=== PATIENT | male | born 1955 | race Caucasian/White ===

== ENCOUNTER 2017-02-28 01:48 | Inpatient (IN) | payer OTHER ==
[2017-02-28] VITALS (10 sets, daily range): BP systolic 98–144; BP diastolic 51–113
[~2017-02-28] VITALS: Ht 175.3 cm; Wt 58.8 kg
--- NOTE | ~2017-02-28 | WRIGHTHP ---
[place], [place] PATIENT HISTORY AND PHYSICAL EXAM NAME: DEON GRAHAM [facility] #: [id number] UNIT #: [id number] ROOM: [facility] DOCTOR: SNEHAL MOONEY MD BIRTHDATE: [birth year] DOS: 02/28/2017 HISTORY OF PRESENT ILLNESS: This patient is 61-year-old, not known to me, patient of Dr. Solorio, comes in with complaints of cough and difficulty breathing. The patient says last week he suddenly got sick with increasing shortness of breath and cough productive of scant amounts of sputum. It started to become quite copious, so finally decided to come into the emergency room. He denies having any chest pains or palpitations, does not have any fever or chills, does not have any abdominal pain, nausea, and emesis. Appetite is poor and he has lost quite a lot of weight in the last couple of months, almost close to 30 pounds. PAST MEDICAL HISTORY: Significant for: 1. COPD for which he is not currently on any medications. 2. Epigastric hernia ____ ventral hernia, status post repair in 2016. SOCIAL HISTORY: Smoker of about half to 1 pack of cigarettes a day. Denies using any alcohol. He is currently employed. He is for the last 30 years. He lives alone. He has 2 grown children who are both in their 30s. FAMILY HISTORY: Significant for parents who from cardiac disease and one brother who is killed in a motorcycle accident and a sister who also from coronary artery disease. He has 1 living sister who is 3 years younger than him who is healthy. PHYSICAL EXAMINATION: VITAL SIGNS: Graphic trend shows a pressure 144/77, pulse of 85, respirations 32, temperature 97.7. Audible gurgling heard. NECK: Supple, no thyromegaly, no lymphadenopathy. LUNGS: Diminished breath sounds, scattered rales heard bilaterally. HEART: Regular. ABDOMEN: Soft, scaphoid. EXTREMITIES: Without any edema. Chest x-ray showed consolidation of right upper lobe, right hilum and right inferior lobe. LABORATORY DATA: BMP: Glucose 93, BUN 98, creatinine 2.92, GFR 22, sodium 133, potassium 3.5, chloride 94. WBC count is 4.6, hemoglobin 15.8, hematocrit 43.8, platelets 126. CT of the chest done in the emergency room shows large right upper lobe consolidation with precarinal lymph node. Lactic acid was elevated at 2.8. ASSESSMENT AND PLAN: 1. The patient who presents with cough, shortness of breath, elevated lactic acid, most likely septic from underlying pneumonia, multilobar, most likely Gram-negative, but since the sputum is quite purulent, the patient is placed on multiple antibiotics including Zosyn, Levaquin and vancomycin. Dr. Baez has been consulted. Sputum will be sent for culture. Breathing treatments have been ordered. [place], [place] PATIENT HISTORY AND PHYSICAL EXAM NAME: DEON GRAHAM UNIT #: [id number] ROOM: [facility] DOCTOR: SNEHAL MOONEY MD BIRTHDATE: [birth year] 2. Chronic obstructive pulmonary disease, low dose IV steroids have been ordered along with breathing treatments. 3. Thrombocytopenia. We will hold off on his aspirin. 4. Stage 4 kidney disease. This is a relatively new finding for the patient. The patient states that he has no recollection of any abnormal kidney functions. He has seen Dr. Solorio in the past, so we will continue IV fluids. We will rule out other pathology, which could cause both lung and kidney disease ____ serological studies are going to be ordered. Renal ultrasound and renal perfusion scan also will be ordered. IV fluids to be continued and repeat labs to be ordered in the morning. SNEHAL MOONEY MD CM:HISPHYS:PATIENT HISTORY AND PHYSICAL EXAMINATION [id number] SNEHAL MOONEY MD 02/28/17 1336 interface
--- NOTE | ~2017-02-28 | PROC NOTE ---
[place], [place] PROCEDURE NOTE [facility]: [id number] UN[facility] #: [id number] ROOM: [facility] DOCTOR: DUGLAS TRIPP MD,MICHELLE BIRTHDATE: [birth year] DOS: 02/28/2017 PROCEDURE: Fiberoptic bronchoscopy patient BAL specimen of the right upper lobe. PREOPERATIVE DIAGNOSES: The patient has a large area of consolidation and infiltration with necrotizing pneumonia suspected in the right upper lung. POSTOPERATIVE DIAGNOSES: The patient has a large area of consolidation and infiltration with necrotizing pneumonia suspected in the right upper lung. There were no endobronchial obstructive lesions. PROCEDURE DESCRIPTION: Informed consent obtained from the patient's family members. The patient was taken to the negative pressure room in the Intensive Care Unit for bedside bronchoscopy. After that, the sedation was continued for the patient with Diprivan and Versed combination. The fiberoptic bronchoscope advanced to the endotracheal tube ____ trachea. Moderate amount of thick secretions were present with purulent secretion in the tracheal lumen as well as in the level of freya, all secretions suctioned out. Small secretion present in the left endobronchial tree as well, which was cleared out. Left upper, lingular lobe bronchi were all noted patent. Right main stem bronchus noted inflammatory changes with redness and the changes was also noted with inflammatory changes with mucosal edema of the right upper lobe and the right lower lobe. There were no endobronchial obstructive lesions. The bronchial washing was collected in the right upper, right middle and right lower lobe. After that BAL specimen was obtained from the patient right upper lobe. The patient to subsegments without any difficulty. The bronchial washing of the patient BAL specimen sent for adequate testing. The BAL specimen will be sent for the cell count differential of the right upper lobe as well. Additional culture for Gram stain, cytology and other appropriate needed testing. Procedure well tolerated. Postoperative findings will be discussed with the patient's family members later on once available. No family member has been available at this time to discuss the current findings. No change in treatment at this time will be necessary. MICHELLE ARDON MD CM:PROCNOTE:PROCEDURE NOTE [id number] MICHELLE TRIPP MD
--- NOTE | ~2017-02-28 | CON ---
[place], [place] REPORT OF CONSULTATION NAME: DEON GRAHAM UNIT #: [id number] ROOM: [facility] DOCTOR: DUGLAS TRIPP MD,MICHELLE BIRTHDATE: [birth year] DOS: 02/28/2017 Consultation was done for this patient for the assessment of current acute pneumonia to large consolidation in the lungs as well as acute respiratory failure, currently use of mechanical ventilation. History could not be obtained from the patient. All the history is contained is document is actual review the physician as well my discussion with Dr. Keyanna Parish personally on the telephone and the discussion with the nursing staff. HISTORY OF PRESENT ILLNESS: This is a 61-year-old white male who has been admitted to the hospital under care of Dr. Keyanna Parish on 02/28/2017. The patient was brought to the hospital by the ambulance. He has been reported symptoms of intermittent shortness of breath ongoing for the past 4 days. The symptoms have been noted progressive worsening. The patient has been noted with coughing. The cough it was described as dark green in color as well as brownish in color at times. The patient has been assessed. The chest x-ray of the patient noted with evidence of large area of consolidation mass-like lesion in the right upper lobe. The patient has required progressive increased oxygen supplementation gradually as he was admitted in the Intensive Care Unit. The patient's respiratory status deteriorated earlier about an hour prior to my assessment, requiring intubation and mechanical ventilation. The patient has been currently noted on the mechanical ventilator. He has also reported symptoms of pain, which is described in the left lower abdomen as well as in the back, in the right rib area as well. The symptoms were reported to ____ this morning. The patient brought to the hospital at 1:48 a.m. The patient is currently intubated, noted on mechanical ventilation with getting intravenous sedation with Diprivan, noted finding with the mechanical ventilation. The pulse oxygen saturation on assist control mode was noted only 91% at the present time on the mechanical ventilator. The patient has been noted copious amount of secretion which has been produced, suctioned out from the endotracheal tube as well as expected sputum described as thick purulent and brownish in color. There has not been having episodes or symptoms of hemoptysis reported. REVIEW OF SYSTEMS: Could not be completed since the patient currently intubated, noted on mechanical ventilation. PAST MEDICAL HISTORY: The patient has reported history of COPD without any medication use, history of epigastric ventral hernia status post surgical repair. PAST SURGICAL HISTORY: Noted ventral hernia repair in 2016. SOCIAL HISTORY: The patient was living at home, has been noted about a pack of cigarettes per day that was started for a long period of time with tobacco cessation reported on 02/23/2017. He is . The patient has 2 children. There was no history of alcohol use or any illicit drugs reported. FAMILY HISTORY: Both parents has been . HOME MEDICATIONS: None reported. [place], [place] REPORT OF CONSULTATION NAME: DEON GRAHAM UNIT #: [id number] ROOM: [facility] DOCTOR: ASIYA LANDEROS MDM BIRTHDATE: [birth year] PHYSICAL EXAMINATION: GENERAL: A 61-year-old male who has been currently intubated on mechanical ventilator, height of 5 feet 9 inches, weight 129 pounds, BMI 19.1 on admission. VITAL SIGNS: Normal temperature, respiratory rate of 18-32 and 36. Heart rate was noted as 83-81, blood pressure 116/51-144/71. Pulse oxygen saturation recorded as 91% at the best mechanical ventilator admission. The pulse ox saturation on 3-5 liters noted 96-99% saturation. HEAD, EARS, EYES, NOSE AND THROAT: Examination shows head was atraumatic. Loss of muscle mastication. Eyes, nonicterus. NECK: Supple. CARDIOVASCULAR: S1, S2 is audible. LUNGS: General reduction in the breath sounds with scattered wheezing. Breaths are noted decreased more on the right than the left side. ABDOMEN: Soft, flat, nontender, bowel sounds present. EXTREMITIES: Without any edema, clubbing, cyanosis. CENTRAL NERVOUS SYSTEM: Could not be assessed, but noted nonfocal, prior to intubation and mechanical ventilation earlier by the primary care physician. SKIN: No lesions or rashes. MUSCULOSKELETAL SYMPTOMS: No obvious deformities. LABORATORY DATA: CBC on admission this morning WBC count 4.6, hemoglobin and hematocrit normal, platelet count 126,000. BMP this morning was noted as BUN 98, creatinine 2.92 on admission, sodium 133, and chloride of 94. Lactic acid 2.8, follow up 1.8. several hours later. Troponin was noted normal on admission. Earlier on admission arterial blood gas 6 liter nasal cannula, pH of 7.36, pCO2 of 36, PO2 of 64.4. Gram stain of the sputum, which was earlier taken spontaneous sputum many white blood cells, moderate epithelial cells, many gram-positive cocci in pairs and chains. ESR was noted this morning is 65. The review of the radiology data, chest x-ray that was done on admission 2-view large area of consolidation with opacification noted in the right upper half of the lung. The right lower lung which appeared to be expanded, left lung was noted to be well inflated without any acute infiltration. CT scan of the chest that was done without contrast, unable to exactly determine the mediastinal structures including lymph nodes. However, the complete opacification of the right upper lung was noted with a MD to be a finding consistent with air necrotizing pneumonia for this patient as well as addition of consolidation noted superior segment of the right lower lobe. The precarinal lymph node was a large dimension of 18 x 11 mm in size. There were no pleural effusions. Chest x-ray that was done post-intubation noted. Endotracheal tube in appropriate position and the remaining finding of previous noted. CT scan and chest x-ray remains unchanged. IMPRESSION: 1. The patient who had been currently admitted to the hospital noted with severe acute pneumonia. The patient with severe acute sepsis with acute kidney injury as well acute injury will be noted, multifactorial with a possibility of a prerenal origin as related to current acute sepsis with lactic acidosis. 2. Rule out possible underlying malignant process as well with a large area of consolidation remains in consideration until the pneumonia completely resolved [place], [place] REPORT OF CONSULTATION NAME: DEON GRAHAM UNIT #: [id number] ROOM: [facility] DOCTOR[facility] [birth year] and all the abnormality remains clear. The necrotizing pneumonia suggested possibility of gram-positive infection including streptococcal pneumonia with viridans species as well as group B hemolytic strep and ____ negatives and anaerobes combination could be considered. Possibility of aspiration cannot be completely excluded. 3. The patient with severe hypoxia with V/Q mismatch because of significant involvement of the lungs, in the right upper lobe completely and the superior segment of the right lower lobe as well. 4. The patient with clinical diagnosis chronic obstructive pulmonary disease as well with acute exacerbation of chronic obstructive pulmonary disease, was noted to currently at the present time. 5. Strong suspicion of protein-calorie malnutrition as well. PLAN OF MANAGEMENT: The patient has been already ordered the bah cultures. Bronchoscopy done at the bedside to rule out any endobronchial lesion also to get the BAL specimen, right upper lobe as well. The patient is currently getting the Levaquin as well as IV Zosyn and vancomycin. Triple antibiotic for the ICU pneumonia coverage, which is appropriate. Urine for Legionella antigen and strep antigen was ordered. Monitor cultures of spontaneous sputum culture of the bronchial washing as well. Monitor hemodynamics. The patient did not require any vasopressor and noted mild hypertensive response. I have personally made the adjustment at the bedside mechanical ventilation with the changing the assist control mode of mechanical ventilation to pressure control mechanical ventilation pressure of 18 with a PEEP of 10 appeared to be the good PEEP resulting in improvement in the oxygenation from 91-97%. The deep venous thrombosis prophylaxis and ventilator bundle management has been ordered as well. Nutrition support will be started after confirmation of the NG tube. Routine labs will be monitored as well. Other supportive therapy, plan of management. Usual care. Additional treatment changes to be done based on progression of the illness. The assessment and management was discussed with Dr. Keyanna Parish in detail as well. Pulmonary critical evaluation and management of this patient, excluding any billable available procedure is 60 minutes. MICHELLE ARDON MD CM:CONSTR:REPORT OF CONSULTATION 1510 02/28/17 2001 interface
--- NOTE | ~2017-02-28 | PROC NOTE ---
[place], [place] PROCEDURE NOTE NAME: DEON GRAHAM UNIT #: [id number] ROOM: [facility] DOCTOR: CARLINE ADKINS DO BIRTHDATE: [birth year] DOS: 02/28/2017 PROCEDURE: Endotracheal intubation. PROCEDURE NOTE: This is a 61-year-old male currently admitted on Dr. Parish service in the ICU. The patient developed worsening shortness of breath and a rapid response was called, which I responded to. The patient needed intubation. Rapid sequence intubation was performed using succinylcholine and etomidate. The procedure was performed by resident, Dr. Mcdonald under my direct supervision. A size 8 endotracheal tube was inserted in the trachea with direct visualization of the vocal cords, good color change on the CO2 detector. There were no complications during the procedure. Chest x-ray was ordered for tube placement. CARLINE ADKINS DO CM:PROCNOTE:PROCEDURE NOTE [id number] CARLINE ADKINS DO
--- NOTE | ~2017-02-28 | PR ---
[place], [place] PROGRESS NOTE [id number] UNIT #: [id number] ROOM: [facility] DOCTOR: DUGLAS TRIPP MD,MICHELLE BIRTHDATE: [birth year] DOS: 03/01/2017 PULMONARY CRITICAL CARE EVALUATION AND MANAGEMENT SUBJECTIVE: The patient is seen and examined on 03/01/2017. He has been continued on the mechanical ventilator. The patient has not been noted any urinary output, but the lactic acid has been noted intermittently elevated. He has been given 1 liter of intravenous fluid yesterday followed by 100 mL of normal saline and other liter has been continued for the patient. Urine output for the patient was noted as minimal, only 50 mL urinary output was noted. The patient was noted with hypotension later on requiring use of the vasopressor therapy as intravenous Levophed was started this morning 10 mcg/kg/min. The mean arterial pressure for the patient at this time was noted as about 66-67. Several of the family members of this patient including one of his sister, ex-, her son and others were present in the room. The patient has been planned for transfer to the [facility]. He has been noted with intermittent secretion production from the endotracheal tube for the bronchoscopy was done yesterday. The blood culture has reported a gram-positive cocci in pairs and chains in both bottles taken on admission. The blood cultures for this patient was noted positive in the aerobic and anaerobic, both bottles. PHYSICAL EXAMINATION: VITAL SIGNS: Temperature 99.2 degree Fahrenheit recorded. The respiratory rate 16-18, heart rate of 96-100. The patient's blood pressure recorded as 80/50 to 127/65. Intake for the patient now 3100 mL and only 80 mL of urinary output in the last 24 hours, possibly on 3 liters. The pulse oxygen saturation of the patient noted as 94% on 50% oxygen supplementation. HEENT: The patient is orally intubated. Orogastric tube has been in place. Eyes nonicterus. NECK: Supple. CARDIOVASCULAR: S1, S2 is audible. LUNGS: There were no added sounds. Exam of the lung noted moderate decreased breath sounds, scattered expiratory wheezing. No crackles. ABDOMEN: Noted soft with bowel sounds present. EXTREMITIES: No edema, clubbing, or cyanosis. CENTRAL NERVOUS SYSTEM: The patient is currently sedated at the present time. SKIN: No lesions or rashes. MUSCULOSKELETAL: No deformities. LABORATORY DATA: The patient's lactic acid was elevated from 2.7-4.1. The arterial blood gas of the patient this morning on mechanical ventilation, pH of 6.99, pCO2 of 64, pO2 of 100 with 50% oxygen. CBC this morning, WBC count 20.3, hemoglobin 14.2, hematocrit 42.5, platelet count of 90,000. CMP of the patient this morning, glucose 109, BUN 122, creatinine 4.60. Potassium was normal. CO2 of 16. Calcium 7.9. Albumin 1.6, AST 972, ALT of 484. Prealbumin less than 3. The blood culture of the patient aerobic and anaerobic bottle both sets on 02/28/2017 in the Emergency Room shows gram-positive cocci in pairs and chains. Arterial blood gas repeated again for the patient with volume control, assist control mechanical ventilation, PEEP of 10.0, tidal volume 600 mL, pH of 6.99, [place], [place] PROGRESS NOTE NAME: DEON GRAHAM UNIT #: [id number] ROOM: [facility] DOCTOR: DUGLAS TRIPP MD,[facility] BIRTHDATE: [birth year] pCO2 of 65.8, pO2 of 152. The influenza A and B, nasal washing antigens were negative. Another arterial blood gas of the patient that was done later on shows pH of 6.97, pCO2 of 71.2, pO2 of 128. The urine culture, the patient noted no bacterial growth. Final culture results were pending. Gram stain of the bronchial washing of the patient moderate white blood cells, many gram-positive cocci in pairs and chains. The cell count differential for the patient BAL specimen of the right upper lobe was noted with 71% segmented neutrophils, 9%, lymphocytes 19%, monocytes, and 1% eosinophils. IMPRESSION: 1. The patient with acute pneumonia, which appeared to be necrotizing as well in the right upper lobe and the superior segment of the right lower lobe with acute severe hypercapnic and hypoxic respiratory failure and acute sepsis with septic shock, multiorgan system failure as well. 2. Progressive acute kidney injury secondary to that. 3. Liver dysfunction. The patient related to the current acute pneumonia and severe sepsis as well. 4. Change in mental status related to that. 5. Acute exacerbation of chronic obstructive pulmonary disease as well. 6. Lactic acidosis secondary to acute sepsis and hypoperfusion. PLAN OF MANAGEMENT: The ventilator changes has been made again by changing the patient to pressure control, volume control mechanical ventilation due to increased ____ ratio for this patient for adequate ventilation. The patient has been currently being prepared to be started on the bicarbonate drip. The patient has been monitored by the Nephrology services. The patient will be transferred to [facility] for further care. The patient will require CRRT with suppressive therapy to be maximized to maintain mean arterial pressure of 65 or greater. Further fluid will not be used since the patient has been noted no urinary output to prevent any fluid overload. Monitor culture results for this patient. Continue current triple antibiotic coverage. Possibility of suspected viridans species related to the strep pneumonia or group A hemolytic strep remains in consideration of Enterococcus possibility can be excluded as well with the current Gram stain. Monitor results of the Gram stain. The patient was also noted severe protein-calorie malnutrition and was started on feeding gradual maximization of the nutritional status. Oral mortality for this patient was noted very high. The assessment, management and further care has been discussed with the patient's family members including one of his sisters as well. He has severe protein calorie malnutrition status. Total time for the pulmonary critical evaluation and management today was 55 minutes. [place], [place] PROGRESS NOTE NAME: DEON GRAHAM UNIT #: [id number] ROOM: [facility] DOCTOR: MICHELLE LANDEROS MD BIRTHDATE: [birth year] MICHELLE ARDON MD CM:PNTRANS [phone] MICHELLE TRIPP MD 03/01/17 1736 interface
--- NOTE | ~2017-02-28 | PR ---
[place], [place] PROGRESS NOTE NAME: DEON GRAHAM UNIT #: [id number] ROOM: [facility] DOCTOR: SNEHAL MOONEY MD BIRTHDATE: [birth year] DOS: SUBJECTIVE: The patient is doing poorly, unresponsive and went into acute renal failure, anuric even after IV fluids and pressors. There is not much improvement in his overall condition and this morning, he is fairly unresponsive. OBJECTIVE: VITAL SIGNS: Blood pressure is 94/67, pulse of 99, respirations 14 and temperature 97.1. LUNGS: Diminished breath sounds. HEART: Regular. ABDOMEN: Soft, scaphoid. EXTREMITIES: Without any edema. LABORATORY DATA: White cell count is 20.3. Blood gas showed a pH of 7.6, pCO2 64, pO2 100 and bicarbonate 15.1. Comprehensive glucose 109, BUN 122, creatinine 4.60. LFTs were abnormal ____. Blood culture, gram-positive cocci in pairs and chains. ASSESSMENT AND PLAN: Sepsis, most likely from a staph infection with necrotizing pneumonia and sepsis related abnormal liver function tests and acute renal failure. The patient's overall prognosis remains poor and guarded. He is on maximal treatment plan here. Discussed with the patient's family members, who requested transfer. Transfer was arranged to [facility]. One call was called and they accepted the patient. SNEHAL MOONEY MD CM:PNTRANS [id number] SNEHAL MOONEY MD 03/01/17 0845 interface
[~2017-02-28 01:48] MED LIST: ASPIR LOW81 MG PO; HYDROCODONE BIT1 T11 PO
[2017-02-28 03:44] LABS: HEMATOCRIT 43.8 % (42.0-52.0); HEMOGLOBIN 15.8 g/dl (14.0-18.0); MEAN CORPUSCULAR HGB 33.9 pg (27.0-31.0); MEAN CORPUSCULAR HGB CONC 36.1 g/dl (33.0-37.0); MEAN PLATELET VOLUME 12.5 fl (9.6-12.3); PLATELET COUNT AUTOMATED 126 10*3/uL (130-400); RED BLOOD COUNT 4.66 10*6/uL (4.50-5.90); RED CELL DISTRI WIDTH 12.8 % (0-14.5); WHITE BLOOD COUNT 4.6 10*3/uL (4.8-10.8)
[2017-02-28 03:52] LABS: CREATININE 2.92 mg/dL (0.70-1.30); POTASSIUM 3.5 mmol/L (3.5-5.1)
[2017-02-28 04:14] LABS: BURR CELLS MANY; PLATELET SUFFICIENCY LOW (NORMAL); TOTAL CELLS COUNTED 100 #CELLS; TOXIC GRANULATION MARKED
[2017-02-28 05:15] LABS: ABG BASE EXCESS -3.8 mmol/L (-2.0-2.0); ABG HCO3 20.7 mmol/l (22-26); ABG O2 SATURATION 90.6 % (95-97); ARTERIAL BLOOD GAS PCO2 36.7 mmHg (35-45); ARTERIAL BLOOD GAS PH 7.366 (7.35-7.45); ARTERIAL BLOOD GAS PO2 64.4 mmHg (80-90)
[2017-02-28 12:01] LABS: ABG HCO3 19.1 mmol/l (22-26); ABG O2 SATURATION 93.3 % (95-97); ARTERIAL BLOOD GAS PCO2 46.9 mmHg (35-45); ARTERIAL BLOOD GAS PH 7.233 (7.35-7.45); ARTERIAL BLOOD GAS PO2 84.7 mmHg (80-90)
[2017-02-28 12:04] LABS: ABG BASE EXCESS -8.2 mmol/L (-2.0-2.0)
[2017-02-28 12:38] LABS: BILIRUBIN NEGATIVE (NEGATIVE); BLOOD NEGATIVE (NEGATIVE); CLARITY CLOUDY (CLEAR); COLOR YELLOW (YELLOW); GLUCOSE NEGATIVE (NEGATIVE); KETONE NEGATIVE (NEGATIVE); LEUKO ESTERASE NEGATIVE (NEGATIVE); NITRITE NEGATIVE (NEGATIVE); SPECIFIC GRAVITY 1.025 (1.005-1.030); UROBILINOGEN 0.2 E.U./dl (0.2-1.0)
[2017-02-28 12:57] LABS: BACTERIA 3+; CALCIUM OXALATE CRYSTALS 2+
[2017-02-28 13:53] LABS: BF LYMPHOCYTES 9 %; BF MONOCYTES 19 %; BF NEUTROPHILS 71 %
[2017-02-28 15:44] LABS: ABG O2 SATURATION 98.8 % (95-97); ARTERIAL BLOOD GAS PCO2 49.1 mmHg (35-45)
[2017-02-28 15:49] LABS: ABG BASE EXCESS -11.1 mmol/L (-2.0-2.0)
[2017-02-28 15:50] LABS: ARTERIAL BLOOD GAS PH 7.18 (7.35-7.45)
[2017-02-28 17:33] LABS: CREATININE 3.76 mg/dL (0.70-1.30); POTASSIUM 3.9 mmol/L (3.5-5.1)
[2017-02-28 18:48] LABS: ABG HCO3 16.6 mmol/l (22-26); ABG O2 SATURATION 96.9 % (95-97); ARTERIAL BLOOD GAS PCO2 43.4 mmHg (35-45)
[2017-02-28 18:50] LABS: ABG BASE EXCESS -11.5 mmol/L (-2.0-2.0); ARTERIAL BLOOD GAS PH 7.198 (7.35-7.45)
[2017-03-01] VITALS (29 sets, daily range): BP systolic 80–110; BP diastolic 50–79
[2017-03-01 05:43] LABS: ABG HCO3 15.1 mmol/l (22-26); ARTERIAL BLOOD GAS PCO2 64.2 mmHg (35-45)
[2017-03-01 05:50] LABS: ABG BASE EXCESS -18.1 mmol/L (-2.0-2.0); ARTERIAL BLOOD GAS PH 6.994 (7.35-7.45)
[2017-03-01 05:55] LABS: ALBUMIN 1.6 gm/dl (3.1-4.5); CHLORIDE 103 mmol/L (98-107); POTASSIUM 4.8 mmol/L (3.5-5.1); SGOT/AST 972 IU/L (3-35); SGPT/ALT 484 U/L (12-78); SODIUM 138 mmol/L (136-145); TOTAL PROTEIN 5.4 gm/dL (6.4-8.2)
[2017-03-01 05:56] LABS: ALKALINE PHOSPHATASE 59 U/L (45-117)
[2017-03-01 05:58] LABS: HEMATOCRIT 42.5 % (42.0-52.0); HEMOGLOBIN 14.2 g/dl (14.0-18.0); MEAN CELL VOLUME 102.4 fl (80.0-94.0); MEAN CORPUSCULAR HGB 34.2 pg (27.0-31.0); MEAN CORPUSCULAR HGB CONC 33.4 g/dl (33.0-37.0); MEAN PLATELET VOLUME 12.5 fl (9.6-12.3); NUCLEATED RED BLOOD CELL 0.2 % (0.0-0.0); PLATELET COUNT AUTOMATED 90 10*3/uL (130-400); RED BLOOD COUNT 4.15 10*6/uL (4.50-5.90); RED CELL DISTRI WIDTH 14.4 % (0-14.5); WHITE BLOOD COUNT 20.3 10*3/uL (4.8-10.8)
[2017-03-01 06:01] LABS: BUN 122 mg/dl (7-24)
[2017-03-01 06:11] LABS: TOTAL CELLS COUNTED 84 #CELLS
[2017-03-01 06:12] LABS: BURR CELLS MANY; DOHLE BODIES FEW; PLATELET SUFFICIENCY LOW (NORMAL); POLYCHROMASIA SLIGHT; TOXIC GRANULATION MARKED; VACUOLATION OF NEUTROPHILS SLIGHT
[2017-03-01 07:36] LABS: PREALBUMIN < 3 mg/dl (20-40)
[2017-03-01 08:48] LABS: ABG HCO3 15.1 mmol/l (22-26); ABG O2 SATURATION 97.7 % (95-97); ARTERIAL BLOOD GAS PCO2 65.8 mmHg (35-45)
[2017-03-01 08:49] LABS: ABG BASE EXCESS -17.6 mmol/L (-2.0-2.0)
[2017-03-01 08:51] LABS: ARTERIAL BLOOD GAS PH 6.992 (7.35-7.45)
[2017-03-01 10:57] LABS: ABG HCO3 15.5 mmol/l (22-26)
[2017-03-01 11:06] LABS: ABG BASE EXCESS -17.8 mmol/L (-2.0-2.0)
[2017-03-01 11:07] LABS: ARTERIAL BLOOD GAS PCO2 71.2 mmHg (35-45); ARTERIAL BLOOD GAS PH 6.972 (7.35-7.45)
[2017-03-02 11:05] LABS: ANTI-DSDNA ANTIBODIES 096339 1 IU/mL (0-9)
[2017-03-02 13:09] LABS: ACID FAST SMEAR Negative (.); ACID FAST SPEC PROCESSING Concentration (.)
[2017-03-02 16:08] LABS: ATYPICAL PANCA <1:20 titer (Neg:<1:20); CYTOPLASMIC (C-ANCA) <1:20 titer (Neg:<1:20); PERINUCLEAR (P-ANCA) <1:20 titer (Neg:<1:20)
== END 2017-03-01 12:10 | disposition short-term general hospital (02) | DRG 853 ==
LOC: ED 01:48 → EDHOLD 04:47 → ICCU 04:47
PROVIDERS: Emergency Medicine Emergency Medical Services; Internal Medicine; Internal Medicine Critical Care Medicine; Internal Medicine Nephrology
PROC: 0B9C8ZX Drainage of Right Upper Lung Lobe, Via Natural or Artificial Opening Endoscopic, Diagnostic (ICD-10-PCS; principal; 2017-02-28)
PROC: 5A1935Z Respiratory Ventilation, Less than 24 Consecutive Hours (ICD-10-PCS; principal; 2017-02-28)
PROC: 0BH17EZ Insertion of Endotracheal Airway into Trachea, Via Natural or Artificial Opening (ICD-10-PCS; principal; 2017-02-28)
PROC: 0BC18ZZ Extirpation of Matter from Trachea, Via Natural or Artificial Opening Endoscopic (ICD-10-PCS; principal; 2017-02-28)
PROC: 0BC28ZZ Extirpation of Matter from Carina, Via Natural or Artificial Opening Endoscopic (ICD-10-PCS; principal; 2017-02-28)
DX: A41.9 Sepsis, unspecified organism (principal); J18.9 Pneumonia, unspecified organism; J96.01 Acute respiratory failure with hypoxia; E46 Unspecified protein-calorie malnutrition; D69.6 Thrombocytopenia, unspecified; J96.02 Acute respiratory failure with hypercapnia; N18.4 Chronic kidney disease, stage 4 (severe); N17.9 Acute kidney failure, unspecified; J44.0 Chronic obstructive pulmonary disease with (acute) lower respiratory infection; J44.1 Chronic obstructive pulmonary disease with (acute) exacerbation; R65.20 Severe sepsis without septic shock; F17.210 Nicotine dependence, cigarettes, uncomplicated; Z79.899 Other long term (current) drug therapy; Z68.22 Body mass index [BMI] 22.0-22.9, adult; Z82.49 Family history of ischemic heart disease and other diseases of the circulatory system